=== PATIENT | male | born 1995 | race Caucasian/White ===

== ENCOUNTER 2017-11-08 13:07 | Emergency (ER) | payer OTHER ==
[~2017-11-08] VITALS: Ht 175.3 cm; Wt 60.5 kg
[~2017-11-08 13:07] MED LIST: BENTYL20 MG PO; GABAPENTIN300 MG PO; KETOROLAC TROME10 MG; ROBAXIN-750750 MG PO
[2017-11-08] MEDS ORDERED: IBUPROFEN 600 MG TAB PO STA (14:07)
[2017-11-08 14:35] VITALS: BP 110/68
== END 2017-11-08 14:25 | disposition home or self-care (01) ==
LOC: FSED 13:07
DX: M54.6 Pain in thoracic spine (principal); M25.562 Pain in left knee; M25.572 Pain in left ankle and joints of left foot; W01.0XXA Fall on same level from slipping, tripping and stumbling without subsequent striking against object, initial encounter; Y93.01 Activity, walking, marching and hiking; Y92.008 Other place in unspecified non-institutional (private) residence as the place of occurrence of the external cause; E80.4 Gilbert syndrome
CPT/HCPCS: 99283